=== PATIENT | female | born 1930 | race Caucasian/White ===

== ENCOUNTER 2020-11-09 11:41 | Emergency (ER) | payer MEDICARE ==
[2020-11-09] MEDS ORDERED: ACETAMINOPHEN TAB 325 MG TAB PO STA (12:04)
--- NOTE | 2020-11-09 12:26 | ED ---
Fever HPI - General Chief Complaint: Fever Stated Complaint: Fever,SOB Time Seen by Provider: 11/09/20 11:46 Source: EMS Mode of arrival: EMS Limitations: no limitations - History of Present Illness Initial Comments: pt states she has had some fevers, shortness of breath and body aches the care facility she is in was concerned she had covid and sent her here for evaluation. pt denies signficiant SOB on arrival, denies chest pain, nausea, vomiting, diar nakul. pt states she "guesses she had a fever". pt states she is usually on 2L of oxygen and has had a cough. patient denies hemoptysis, leg swelling, difficulty lying flat, hx of DVT/PE, denies anticoagulation use. Patient denies additional complaints. She augie chest pain, jaw pain, arm pain or pain with a deep breath. Patient is very pleasant, nontoxic in no acute distress. - Related Data Home Medications Medication Instructions Recorded Confirmed Ascorbic Acid [Vitamin C] 500 mg PO DAILY@1700 11/09/20 11/09/20 Aspirin EC [Ecotrin Low Dose] 81 mg PO DAILY 11/09/20 11/09/20 Cholecalciferol [Vitamin D3 (25 2,000 unit PO DAILY 11/09/20 11/09/20 Mcg = 1000 Iu)] Ibuprofen [Motrin] 400 mg PO BID 11/09/20 11/09/20 LORazepam [Ativan] 0.5 mg PO BID 11/09/20 11/09/20 Loratadine [Claritin] 10 mg PO DAILY 11/09/20 11/09/20 Omeprazole [PriLOSEC] 20 mg PO DAILY 11/09/20 11/09/20 Potassium Chloride [Klor-Con 10] 10 meq PO DAILY 11/09/20 11/09/20 Sennosides/Docusate Sodium [Senna 1 tab PO HS 11/09/20 11/09/20 Plus 8.6-50 mg Tablet] traMADol HCL/ACETAMINOPHEN 1 tab PO DAILY@1400 11/09/20 11/09/20 [Ultracet 37.5-325] Previous Rx's Medication Instructions Recorded Azithromycin [Zithromax Z-pack (6 0 mg PO DIRECTED 5 Days #6 tab 11/09/20 tabs)] Allergies Allergy/AdvReac Type Severity Reaction Status Date / Time codeine AdvReac Mild Nausea & Verified 11/09/20 14:04 Vomiting Review of Systems ROS Statement: Those systems with pertinent positive or pertinent negative responses have been documented in the HPI. ROS Other: All systems not noted in ROS Statement are negative. Past Medical History History of Any Multi-Drug Resistant Organisms: None Reported Past Surgical History: Cholecystectomy Smoking Status: Never smoker Past Alcohol Use History: None Reported Past Drug Use History: None Reported General Exam - General Exam Comments Initial Comments: General: The patient is awake and alert, in no distress Eye: +3 mm pupils are equal, round and reactive to light, extra-ocular movements are intact. No nystagmus. There is normal conjunctiva bilaterally. No signs of icterus. Ears, nose, mouth and throat: There are moist mucous membranes and no oral lesions. Neck: The neck is supple, there is no tenderness or JVD. Cardiovascular: There is a regular rate and rhythm. No murmur, rub or gallop is appreciated. Respiratory: Lungs are clear to auscultation, respirations are non-labored, breath sounds are equal. No wheezes, stridor, rales, or rhonchi. No retractions no abdominal breathing Gastrointestinal: Soft, non-distended, non-tender abdomen without masses or organomegaly noted. There is no rebound or guarding present. Musculoskeletal: Normal ROM, no tenderness. Strength 5/5. Sensation intact. Radial pulses equal bilaterally 2+. Neurological: A&O x 2 ( did not know date). CN II-XII intact, There are no obvious motor or sensory deficits. Coordination appears grossly intact. Speech is normal. Skin: Skin is warm and dry and no rashes or lesions are noted. Psychiatric: Cooperative, appropriate mood & affect, normal judgment. Limitations: no limitations Course Vital Signs 11/09/20 11/09/20 11:46 14:30 Temperature 98.2 F 98.4 F Pulse Rate 98 90 Respiratory 20 18 Rate Blood Pressure 113/72 115/78 O2 Sat by Pulse 100 100 Oximetry Medical Decision Making - Medical Decision Making labs stable. hx of cough. PNA, atypical in appearance on CXR. CTA no central PE. Patient does not appear SOB. No distress. Pt states she would prefer to go home. pt discharged appearing well after discussing case with attending provider. - Lab Data Result diagrams: 11/09/20 12:27 11/09/20 12:27 Lab Results 11/09/20 11/09/20 11/09/20 Range/Units 12: 12: 12:27 WBC 3.9 (3.8-10.6) k/uL RBC 3.38 L (3.80-5.40) m/uL Hgb 10.7 L (11.4-16.0) gm/dL Hct 31.4 L (34.0-46.0) % MCV 92.9 (80.0-100.0) fL MCH 31.5 (25.0-35.0) pg MCHC 33.9 (31.0-37.0) g/dL RDW 13.5 (11.5-15.5) % Plt Count 119 L (150-450) k/uL MPV 9.0 Neutrophils % 65 % Lymphocytes % 10 % Monocytes % 22 % Eosinophils % 1 % Basophils % 0 % Neutrophils # 2.6 (1.3-7.7) k/uL Lymphocytes # 0.4 L (1.0-4.8) k/uL Monocytes # 0.9 (0-1.0) k/uL Eosinophils # 0.1 (0-0.7) k/uL Basophils # 0.0 (0-0.2) k/uL PT 10.1 (9.0-12.0) sec INR 1.0 (<1.2) APTT 27.2 (22.0-30.0) sec D-Dimer 1.30 H (<0.60) mg/L FEU Sodium 130 L (137-145) mmol/L Potassium 3.9 (3.5-5.1) mmol/L Chloride 98 (98-107) mmol/L Carbon Dioxide 26 (22-30) mmol/L Anion Gap 6 mmol/L BUN 14 (7-17) mg/dL Creatinine 0.60 (0.52-1.04) mg/dL Est GFR (CKD-EPI)AfAm >90 (>60 ml/min/1.73 sqM) Est GFR (CKD-EPI)NonAf 82 (>60 ml/min/1.73 sqM) Glucose 84 (74-99) mg/dL Plasma Lactic Acid Jasper (0.7-2.0) mmol/L Calcium 9.4 (8.4-10.2) mg/dL Magnesium 1.5 L (1.6-2.3) mg/dL Ferritin 91.9 (10.0-291.0) ng/mL Total Bilirubin 0.5 (0.2-1.3) mg/dL AST 46 H (14-36) U/L ALT 22 (4-34) U/L Alkaline Phosphatase 80 (38-126) U/L Lactate Dehydrogenase 543 (313-618) U/L Troponin I (0.000-0.034) ng/mL C-Reactive Protein 25.4 H (<10.0) mg/L Total Protein 6.5 (6.3-8.2) g/dL Albumin 3.9 (3.5-5.0) g/dL Procalcitonin (0.02-0.09) ng/mL Urine Color Urine Appearance (Clear) Urine pH (5.0-8.0) Ur Specific Blackstone (1.001-1.035) Urine Protein (Negative) Urine Glucose (UA) (Negative) Urine Ketones (Negative) Urine Blood (Negative) Urine Nitrite (Negative) Urine Bilirubin (Negative) Urine Urobilinogen (<2.0) mg/dL Ur Leukocyte Esterase (Negative) Urine RBC (0-5) /hpf Urine WBC (0-5) /hpf Ur Squamous Epith Cells (0-4) /hpf Amorphous Sediment (None) /hpf Urine Bacteria (None) /hpf Urine Mucus (None) /hpf Coronavirus (PCR) (Not Detectd) 11/09/20 11/09/20 11/09/20 Range/Units 12:27 12:27 12:27 WBC (3.8-10.6) k/uL RBC (3.80-5.40) m/uL Hgb (11.4-16.0) gm/dL Hct (34.0-46.0) % MCV (80.0-100.0) fL MCH (25.0-35.0) pg MCHC (31.0-37.0) g/dL RDW (11.5-15.5) % Plt Count (150-450) k/uL MPV Neutrophils % % Lymphocytes % % Monocytes % % Eosinophils % % Basophils % % Neutrophils # (1.3-7.7) k/uL Lymphocytes # (1.0-4.8) k/uL Monocytes # (0-1.0) k/uL Eosinophils # (0-0.7) k/uL Basophils # (0-0.2) k/uL PT (9.0-12.0) sec INR (<1.2) APTT (22.0-30.0) sec D-Dimer (<0.60) mg/L FEU Sodium (137-145) mmol/L Potassium (3.5-5.1) mmol/L Chloride (98-107) mmol/L Carbon Dioxide (22-30) mmol/L Anion Gap mmol/L BUN (7-17) mg/dL Creatinine (0.52-1.04) mg/dL Est GFR (CKD-EPI)AfAm (>60 ml/min/1.73 sqM) Est GFR (CKD-EPI)NonAf (>60 ml/min/1.73 sqM) Glucose (74-99) mg/dL Plasma Lactic Acid Jasper 1.1 (0.7-2.0) mmol/L Calcium (8.4-10.2) mg/dL Magnesium (1.6-2.3) mg/dL Ferritin (10.0-291.0) ng/mL Total Bilirubin (0.2-1.3) mg/dL AST (14-36) U/L ALT (4-34) U/L Alkaline Phosphatase (38-126) U/L Lactate Dehydrogenase (313-618) U/L Troponin I <0.012 (0.000-0.034) ng/mL C-Reactive Protein (<10.0) mg/L Total Protein (6.3-8.2) g/dL Albumin (3.5-5.0) g/dL Procalcitonin 0.38 H (0.02-0.09) ng/mL Urine Color Urine Appearance (Clear) Urine pH (5.0-8.0) Ur Specific Black[place] (1.001-1.035) Urine Protein (Negative) Urine Glucose (UA) (Negative) Urine Ketones (Negative) Urine Blood (Negative) Urine Nitrite (Negative) Urine Bilirubin (Negative) Urine Urobilinogen (<2.0) mg/dL Ur Leukocyte Esterase (Negative) Urine RBC (0-5) /hpf Urine WBC (0-5) /hpf Ur Squamous Epith Cells (0-4) /hpf Amorphous Sediment (None) /hpf Urine Bacteria (None) /hpf Urine Mucus (None) /hpf Coronavirus (PCR) (Not Detectd) 11/09/20 11/09/20 Range/Units 12:27 13:00 WBC (3.8-10.6) k/uL RBC (3.80-5.40) m/uL Hgb (11.4-16.0) gm/dL Hct (34.0-46.0) % MCV (80.0-100.0) fL MCH (25.0-35.0) pg MCHC (31.0-37.0) g/dL RDW (11.5-15.5) % Plt Count (150-450) k/uL MPV Neutrophils % % Lymphocytes % % Monocytes % % Eosinophils % % Basophils % % Neutrophils # (1.3-7.7) k/uL Lymphocytes # (1.0-4.8) k/uL Monocytes # (0-1.0) k/uL Eosinophils # (0-0.7) k/uL Basophils # (0-0.2) k/uL PT (9.0-12.0) sec INR (<1.2) APTT (22.0-30.0) sec D-Dimer (<0.60) mg/L FEU Sodium (137-145) mmol/L Potassium (3.5-5.1) mmol/L Chloride (98-107) mmol/L Carbon Dioxide (22-30) mmol/L Anion Gap mmol/L BUN (7-17) mg/dL Creatinine (0.52-1.04) mg/dL Est GFR (CKD-EPI)AfAm (>60 ml/min/1.73 sqM) Est GFR (CKD-EPI)NonAf (>60 ml/min/1.73 sqM) Glucose (74-99) mg/dL Plasma Lactic Acid Jasper (0.7-2.0) mmol/L Calcium (8.4-10.2) mg/dL Magnesium (1.6-2.3) mg/dL Ferritin (10.0-291.0) ng/mL Total Bilirubin (0.2-1.3) mg/dL AST (14-36) U/L ALT (4-34) U/L Alkaline Phosphatase (38-126) U/L Lactate Dehydrogenase (313-618) U/L Troponin I (0.000-0.034) ng/mL C-Reactive Protein (<10.0) mg/L Total Protein (6.3-8.2) g/dL Albumin (3.5-5.0) g/dL Procalcitonin (0.02-0.09) ng/mL Urine Color Light Yellow Urine Appearance Cloudy H (Clear) Urine pH 6.5 (5.0-8.0) Ur Specific [place]stone 1.012 (1.001-1.035) Urine Protein Negative (Negative) Urine Glucose (UA) Negative (Negative) Urine Ketones 1+ H (Negative) Urine Blood Moderate H (Negative) Urine Nitrite Negative (Negative) Urine Bilirubin Negative (Negative) Urine Urobilinogen <2.0 (<2.0) mg/dL Ur Leukocyte Esterase Small H (Negative) Urine RBC 5 (0-5) /hpf Urine WBC 4 (0-5) /hpf Ur Squamous Epith Cells <1 (0-4) /hpf Amorphous Sediment Few H (None) /hpf Urine Bacteria Occasional H (None) /hpf Urine Mucus Rare H (None) /hpf Coronavirus (PCR) Not Detected (Not Detectd) Disposition Clinical Impression: Fever, Atypical pneumonia Disposition: HOME SELF-CARE Condition: Good Instructions (If sedation given, give patient instructions): Fever in Adults (ED), Pneumonia (ED) Additional Instructions: Please use medication as discussed. Please follow-up with family doctor in the next 2 days. Please return to emergency room if the symptoms increase or worsen or for any other concerns. Prescriptions: Azithromycin [Zithromax Z-pack (6 tabs)] 0 mg PO DIRECTED 5 Days #6 tab Is patient prescribed a controlled substance at d/c from ED?: No Referrals: Balbir Manriquez MD [Primary Care Provider] - 1-2 days Time of Disposition: 14:14
[2020-11-09 12:43] LABS: Amorphous Sediment,Urine Few /hpf; Appearance,Urine Cloudy (Clear); Bacteria,Urine Occasional /hpf; Bilirubin,Urine Negative (Negative); Blood,Urine Moderate (Negative); Color,Urine Light Yellow; Glucose,Urine (UA) Negative (Negative); Ketones,Urine 1+ (Negative); Leukocyte Esterase,Urine Small (Negative); Mucus,Urine Rare /hpf; Nitrite,Urine Negative (Negative); PH, Urine 6.5 (5.0-8.0); Protein,Urine Negative (Negative); RBC,Urine 5 /hpf (0-5); Specific Gravity,Urine 1.012 (1.001-1.035); Squamous Epithelial Cell,Urine <1 /hpf (0-4); Urobilinogen,Urine <2.0 mg/dL (<2.0); WBC,Urine 4 /hpf (0-5)
[2020-11-09 12:54] LABS: ALT 22 U/L (4-34); AST 46 U/L (14-36); African American GFR (CKD) >90 (>60 ml/min/1.73 sqM); Albumin 3.9 g/dL (3.5-5.0); Alkaline Phosphatase 80 U/L (38-126); Anion Gap 6 mmol/L; Basophils % (A) 0 %; Blood Urea Nitrogen 14 mg/dL (7-17); C Reactive Protein 25.4 mg/L (<10.0); Calcium 9.4 mg/dL (8.4-10.2); Carbon Dioxide 26 mmol/L (22-30); Chloride 98 mmol/L (98-107); Eosinophils # (A) 0.1 k/uL (0-0.7); Eosinophils % (A) 1 %; Glucose 84 mg/dL (74-99); HCT 31.4 % (34.0-46.0); HGB 10.7 gm/dL (11.4-16.0); LDH 543 U/L (313-618); Lymphocytes # (A) 0.4 k/uL (1.0-4.8); Lymphocytes % (A) 10 %; MCH 31.5 pg (25.0-35.0); MCHC 33.9 g/dL (31.0-37.0); MCV 92.9 fL (80.0-100.0); Magnesium 1.5 mg/dL (1.6-2.3); Monocytes # (A) 0.9 k/uL (0-1.0); Monocytes % (A) 22 %; Neutrophils # (A) 2.6 k/uL (1.3-7.7); Neutrophils % (A) 65 %; Non-African American GFR(CKD) 82 (>60 ml/min/1.73 sqM); Partial Thromboplastin Time 27.2 sec (22.0-30.0); Platelet Count 119 k/uL (150-450); Potassium 3.9 mmol/L (3.5-5.1); Prothrombin Time 10.1 sec (9.0-12.0); RBC 3.38 m/uL (3.80-5.40); RDW 13.5 % (11.5-15.5); Sodium 130 mmol/L (137-145); Total Bilirubin 0.5 mg/dL (0.2-1.3); Total Protein 6.5 g/dL (6.3-8.2); WBC 3.9 k/uL (3.8-10.6)
[2020-11-09 13:02] LABS: D-Dimer 1.3 mg/L FEU (<0.60)
--- NOTE | 2020-11-09 13:05 | XR ---
EXAMINATION TYPE: XR chest 1V portable DATE OF EXAM: 11/09/2020 COMPARISON: None INDICATION: Suspect Covid 19, chest congestion TECHNIQUE: Single frontal view of the chest is obtained. FINDINGS: The heart size is normal. The pulmonary vasculature is slightly prominent. Increased perihilar lung markings are present. Mild increased nonspecific lung markings extend in lef t lower lobe. Clinical correlation recommended for atypical pneumonia. IMPRESSION: 1. Bilateral perihilar and left lower lobe mild nonspecific infiltrates. Correlate for atypical pneum onia.
[2020-11-09] MEDS ORDERED: AZITHROMYCIN 500 MG in SODIUM CHLORIDE 0.9% 250 ML IVPB STA (13:13)
--- NOTE | 2020-11-09 14:07 | CT ---
EXAMINATION TYPE: CT chest angio for PE DATE OF EXAM: 11/09/2020 COMPARISON: Chest x-ray earlier today HISTORY: Elevated D-dimer. Chest congestion. CT DLP: 164.2 mGycm Automated exposure control for dose reduction was used. CONTRAST: CT Chest for pulmonary embolism performed with without and with IV Contrast, patient injected with 50 ml mL of Isovue 370. FINDINGS: LUNGS: Exam suboptimal as patient unable to hold breath, significant respiratory motion artifact degr adation is present. This limits evaluation of groundglass opacities and subcentimeter nodules. There is background [id number] underlying emphysematous change felt present. Tiny left greater than r ight bilateral pleural effusions. Mild/moderate bibasilar linear scarring and/or atelectasis. Focal a reas of reticulation and groundglass opacity in the periphery are noted. No pneumothorax. MEDIASTINUM: There is satisfactory enhancement of the pulmonary artery and its branches, there is no CT evidence for pulmonary embolism. There are no greater than 1 cm hilar or mediastinal lymph nodes. No cardiomegaly is seen. Tiny pericardial effusion noted. Moderate right atrial dilatation. Moder ate to large size hiatal hernia or intrathoracic stomach with abnormal twisting. Some ectasia of the ascending aorta up to 3.4 cm in diameter. No dissection is evident. Moderate mixed plaque in the ecta tic descending aorta. Prominent right and left pulmonary arteries suggesting underlying pulmonary art aditya hypertension. OTHER: Osseous structures are demineralized with underlying scoliosis and exaggerated thoracic kypho sis. Multiple compression type fractures moderate to severe nature of the thoracolumbar spine with se veral levels of vertebroplasty noted near the thoracolumbar junction, cement extrusion into the T11-T 12 disc space noted. IMPRESSION: 1. Suboptimal study without acute pulmonary embolism. 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 Cannot exclude bilateral peripheral acute infiltrates and/or areas of edema. Correlate clinically.
[2020-11-09 17:25] VITALS: BP 115/78; PULSE 90; RESP 18; TEMP 98.4
[2020-11-09 20:53] LABS: Ferritin 91.9 ng/mL (10.0-291.0)
== END 2020-11-09 14:30 | disposition home or self-care (01) ==
LOC: EC 11:41
DX: J18.9 Pneumonia, unspecified organism (principal); Z20.818 Contact with and (suspected) exposure to other bacterial communicable diseases; Z88.5 Allergy status to narcotic agent
CPT/HCPCS: 36415; 93005; 85379; 80053; 82728; 83605; 83615; 83735; 84484; 85025; 85610; 85730; 86140; 81001; 84145; 87635; 71045; 71275; 96365; 99284; J0456; Q9967